=== PATIENT | female | born 1960 | race Caucasian/White ===

== ENCOUNTER 2019-05-04 21:23 | Emergency (ER) | payer MEDICARE ==
[~2019-05-04] VITALS: Ht 167.6 cm; Wt 56.7 kg
[2019-05-04] MEDS ORDERED: LEVO50TA PO (21:30)
--- NOTE | 2019-05-04 21:33 | NUR ---
pt ambulating with steady gait. A&O x4. c/o bilateral knee and BUE pain s/p fall today approx 1500. pt able to move extremities freely. no visible injuries noted. denies hitting head or LOC. speech is clear and able to make needs known. Breathing even and unlabored. pt also c/o nausea. denies dizziness or diarrhea. denies any distress.
--- NOTE | 2019-05-04 21:35 | NUR ---
Dr. Heart at bedside for MSE
[2019-05-04] MEDS ORDERED: ONDANSETRON ODT 4 MG TAB.RAPDIS ONE (21:41)
[2019-05-04] MEDS ORDERED: ONDANSETRON ODT 4 MG TAB.RAPDIS SL ONE (21:45)
[2019-05-04] MEDS ORDERED: HYDROMORPHONE 1 MG/1 ML DISP.SYRIN IM ONE (22:15)
[2019-05-04] MEDS ORDERED: ONDANSETRON 4 MG/2 ML VIAL IM ONE (22:15)
--- NOTE | 2019-05-04 22:20 | NUR ---
Patient discharged to home in stable conditon. Written and verbal after care instructions given. Patient verbalizes understanding of instructions. Patient ambulating with steady gait. Results / Sling provided to patient.
[2019-05-04 22:24] VITALS: BP 116/63
== END 2019-05-04 22:20 | disposition home or self-care (01) ==
LOC: ER 21:23
DX: S52.122A Displaced fracture of head of left radius, initial encounter for closed fracture (principal); M25.561 Pain in right knee; M25.562 Pain in left knee; E03.9 Hypothyroidism, unspecified; Z79.899 Other long term (current) drug therapy; W19.XXXA Unspecified fall, initial encounter; Y93.89 Activity, other specified; Y92.89 Other specified places as the place of occurrence of the external cause; Y99.8 Other external cause status
CPT/HCPCS: 73080; A4663; Q0162

== ENCOUNTER 2019-06-07 07:30 | Emergency (ER) | payer MEDICARE ==
[~2019-06-07] VITALS: Ht 167.6 cm; Wt 54.4 kg
[~2019-06-07 07:30] MED LIST: LEVO50TA PO
--- NOTE | 2019-06-07 07:44 | NUR ---
Patient ambulated with stable gait. Speech is clear, speaks in complete sentences. A/Ox4. No acute neuro deficits. Patient came for c/o worsening cough that initially started about 10 days ago. Respiratory even and unlabored, clear lung sounds noted throughout, evidence of non-productive cough noted. No acute cardiovascular distress noted, all pulses palpable, denies any cp. No GI/ distress. Patient in bed at lowest position, sr upx2, call light within reach. Fall precautions implemented per protocol.
--- NOTE | 2019-06-07 07:48 | NUR ---
Jovna Joe at bedside for images
--- NOTE | 2019-06-07 07:57 | NUR ---
ERMD at bedside for MSE
[2019-06-07] MEDS ORDERED: IPRATROPIUM BROMIDE 0.5 MG/2.5 ML NEBU NEB ONE (08:15)
[2019-06-07] MEDS ORDERED: ACETAMINOPHEN ES 500 MG TABLET ONE (08:15)
[2019-06-07] MEDS ORDERED: IBUPROFEN 400 MG TABLET PO ONE (08:15)
[2019-06-07] MEDS ORDERED: ACETAMINOPHEN ES 500 MG TABLET PO ONE (08:15)
[2019-06-07] MEDS ORDERED: ALBUTEROL SULFATE 2.5 MG/3 ML NEBU NEB ONE (08:15)
[2019-06-07] MEDS ORDERED: predniSONE 10 MG TABLET PO ONE (08:15)
[2019-06-07] MEDS ORDERED: IBUPROFEN 400 MG TABLET ONE (08:15)
[2019-06-07] MEDS ORDERED: predniSONE 20 MG TABLET ONE (08:16)
[2019-06-07] MEDS ORDERED: IPRATROPIUM BROMIDE 0.5 MG/2.5 ML NEBU ONE (08:43)
[2019-06-07] MEDS ORDERED: ALBUTEROL SULFATE 2.5 MG/3 ML NEBU ONE ×2 (08:43)
[2019-06-07] MEDS ORDERED: LEVOFLOXACIN 750 MG TABLET PO ONE (09:00)
[2019-06-07] MEDS ORDERED: LEVOFLOXACIN 750 MG TABLET ONE (09:08)
--- NOTE | 2019-06-07 09:23 | NUR ---
Patient discharged to home in stable conditon. Written and verbal after care instructions given. Patient verbalizes understanding of instructions. Patient ambulated with stable gait.
[2019-06-07 09:24] VITALS: BP 123/82
== END 2019-06-07 09:25 | disposition home or self-care (01) ==
LOC: ER 07:30
DX: J20.9 Acute bronchitis, unspecified (principal); J01.90 Acute sinusitis, unspecified; E03.9 Hypothyroidism, unspecified; Z79.899 Other long term (current) drug therapy
CPT/HCPCS: 71045; 94664; 99284; J7512; A4663; A9150; J3590

== ENCOUNTER 2019-07-08 06:36 | Emergency (ER) | payer MEDICAID, MEDICARE ==
[~2019-07-08] VITALS: Ht 167.6 cm; Wt 55.8 kg
--- NOTE | 2019-07-08 06:45 | NUR ---
Dr. Lala at bedside for MSE
--- NOTE | 2019-07-08 06:56 | NUR ---
Patient discharged to home in stable conditon. Written and verbal after care instructions given. Patient verbalizes understanding of instructions. Patient ambulating with steady gait.
[2019-07-08 06:57] VITALS: BP 132/75
== END 2019-07-08 06:56 | disposition home or self-care (01) ==
LOC: ER 06:40
DX: J01.90 Acute sinusitis, unspecified (principal); E03.9 Hypothyroidism, unspecified
CPT/HCPCS: A4663

== ENCOUNTER 2019-08-30 07:32 | Emergency (ER) | payer MEDICARE ==
[~2019-08-30] VITALS: Ht 167.6 cm; Wt 55.8 kg
--- NOTE | 2019-08-30 08:10 | NUR ---
Patient ambulated with stable gait. Speech is clear, speaks in complete sentences no acute neuro deficits. A/Ox4. Patient came for c/o RUQ abd wound and is experiencing localized pain in the general area since last week. Abd wound is erythamatous in the RUQ no prurulent drainage/discharge, and is warm to the touch. Respiratory even and unlabored, no cough no sob at this time. No cardiovascular distress noted, denies any cp or palpitations, cap refill <3 secs, all pulses palpable. Denies any vomiting/diarrhea but reports having intermittent nausea. Patient in bed at lowest position, sr upx2, call light within reach. Fall precautions implemented per protocol.
--- NOTE | 2019-08-30 08:18 | NUR ---
Patient discharged to home in stable conditon. Written and verbal after care instructions given. Patient verbalizes understanding of instructions. Patient ambulated with stable gait.
[2019-08-30 08:25] VITALS: BP 130/85
== END 2019-08-30 08:32 | disposition home or self-care (01) ==
LOC: ER 07:32
DX: S31.609A Unspecified open wound of abdominal wall, unspecified quadrant with penetration into peritoneal cavity, initial encounter (principal); E03.9 Hypothyroidism, unspecified; X58.XXXA Exposure to other specified factors, initial encounter; Y93.89 Activity, other specified; Y92.89 Other specified places as the place of occurrence of the external cause; Y99.8 Other external cause status
CPT/HCPCS: A4663

== ENCOUNTER 2023-12-03 05:35 | Emergency (ER) | payer MEDICARE, OTHER ==
[~2023-12-03] VITALS: Ht 167.6 cm; Wt 61.2 kg
[2023-12-03 05:40] VITALS: O2SAT 97
[2023-12-03 06:01] LABS: *BILIRUBIN,URIN NEGATIVE (NEGATIVE); *BLOOD, URINE NEGATIVE (NEGATIVE); *CLARITY,URINE CLEAR (CLEAR); *COLOR,URINE YELLOW (YELLOW); *KETONES,URINE NEGATIVE (NEGATIVE); *PROTEIN,URINE NEGATIVE (NEGATIVE); *UROBILINOGEN,URINE 0.2 E.U./dl (NORMAL); LEUKOCYTE ESTERASE ,URINE TRACE (NEGATIVE); NITRITE, URINE NEGATIVE (NEGATIVE); PH,URINE 5.5 (5.0-8.0); UGLUCOSE NEGATIVE (NEGATIVE)
[2023-12-03 06:10] LABS: BACTERIA,URINE NONE SEEN /HPF (NONE SEEN); RBC,URINE NONE SEEN /HPF (0-3); SQUAMOUS EPITHELIAL CELL,UR FEW /HPF (NONE SEEN); WBC,URINE 0-3 /HPF (0-3)
== END 2023-12-03 06:05 | disposition left against medical advice (07) ==
LOC: ER 05:50
DX: R35.0 Frequency of micturition (principal); M79.601 Pain in right arm; M25.551 Pain in right hip; Z53.21 Procedure and treatment not carried out due to patient leaving prior to being seen by health care provider; W01.0XXA Fall on same level from slipping, tripping and stumbling without subsequent striking against object, initial encounter; Y93.89 Activity, other specified; Y92.89 Other specified places as the place of occurrence of the external cause; Y99.8 Other external cause status

== ENCOUNTER 2023-12-14 20:54 | Inpatient (IN) | payer MEDICARE, OTHER ==
[~2023-12-14] VITALS: Ht 167.6 cm; Wt 72.6 kg
[2023-12-14] MEDS ORDERED: REMEDY ESSENTIAL ZINC PASTE 113 GM TOP PRN (21:00)
[2023-12-14 21:30] VITALS: BP 106/59; TEMP 98.7; O2SAT 95
[2023-12-14] MEDS ORDERED: PREGABALIN 50 MG CAPSULE PO SCH (21:30)
[2023-12-14] MEDS: BUPRENORPHINE HCL 2 MG TAB.SUBL SL ONE (21:30)
[2023-12-14] MEDS ORDERED: ALBUTEROL SULFATE 8 GM HFA.AER.AD INH PRN (21:30)
[2023-12-14] MEDS ORDERED: ALBUTEROL SULFATE 2.5 MG/3 ML NEBU NEB PRN (22:15)
[2023-12-14] MEDS: OXYCODONE HCL 5 MG TABLET PO PRN (22:52)
[2023-12-15 06:00] VITALS: BP 122/66; TEMP 97.9; O2SAT 95
[2023-12-15] MEDS: LEVOTHYROXINE SODIUM 50 MCG TABLET PO SCH ×2 (06:09→15:15)
[2023-12-15] MEDS: PANTOPRAZOLE SODIUM 40 MG TABLET.DR PO SCH ×2 (06:09→15:15)
[2023-12-15] MEDS ORDERED: BUPRENORPHINE HCL 2 MG TAB.SUBL SL PRN (06:30)
[2023-12-15 08:00] VITALS: BP 135/58; TEMP 98.3; O2SAT 98
[2023-12-15] MEDS: ESCITALOPRAM OXALATE 10 MG TABLET PO SCH ×2 (08:47→15:15)
[2023-12-15] MEDS ORDERED: PREG75CA PO (11:56)
[2023-12-15] MEDS ORDERED: BUPR2TAB3 PO (11:57)
[2023-12-15] MEDS ORDERED: PANT40TA49 PO (11:57)
[2023-12-15] MEDS ORDERED: ESCI10TA PO (11:59)
[2023-12-15] MEDS: BUPRENORPHINE HCL 2 MG TAB.SUBL SL ONE (12:00)
[2023-12-15] MEDS: PREGABALIN 25 MG CAPSULE PO ONE (12:00)
[2023-12-15] MEDS ORDERED: Medication Not On Formulary EA (Pregabalin (Lyrica) 75 MG) PO SCH (13:00)
[2023-12-15] MEDS: CIPROFLOXACIN HCL 250 MG TABLET PO SCH (13:07)
[2023-12-15 16:30] VITALS: BP 133/69; TEMP 97.6; O2SAT 97
[2023-12-15] MEDS: PREGABALIN 25 MG CAPSULE PO SCH (17:04)
[2023-12-15] MEDS: BUPRENORPHINE HCL 2 MG TAB.SUBL SL SCH (17:09)
[2023-12-15 20:00] VITALS: BP 101/59; TEMP 98.9; O2SAT 94
[2023-12-16 06:42] VITALS: BP 116/69; TEMP 98.8; O2SAT 97
[2023-12-16 12:00] VITALS: BP 115/52; TEMP 98.4; O2SAT 96
[2023-12-16 16:02] VITALS: BP 122/56; TEMP 99.8; O2SAT 95
[2023-12-16 20:00] VITALS: TEMP 98.7
[2023-12-17 16:03] VITALS: TEMP 98.5
[2023-12-17 19:45] VITALS: BP 125/68; TEMP 98.2; O2SAT 96
[2023-12-18 06:12] VITALS: BP 113/47; TEMP 97.8; O2SAT 96
[2023-12-18 08:30] VITALS: BP 109/61; TEMP 98; O2SAT 97
[2023-12-18 08:59] VITALS: TEMP 98
[2023-12-18 16:08] VITALS: BP 107/57; TEMP 98.4; O2SAT 95
[2023-12-18 19:40] VITALS: BP 124/60; TEMP 98; O2SAT 97
[2023-12-19] MEDS: ZOLPIDEM 5 MG TABLET PO PRN (01:02)
[2023-12-19 12:00] VITALS: BP 126/56; TEMP 98; O2SAT 100
[2023-12-19 16:00] VITALS: BP 115/56; TEMP 98.1; O2SAT 97
[2023-12-19 19:58] VITALS: BP 119/68; TEMP 98; O2SAT 95
[2023-12-20 05:45] VITALS: BP 125/68; TEMP 97.9; O2SAT 97
[2023-12-20 15:05] VITALS: BP 102/60; TEMP 97.6; O2SAT 95
[2023-12-20] MEDS: diphenhydrAMINE 50 MG CAPSULE PO PRN (21:55)
[2023-12-21 03:22] VITALS: BP 102/62; TEMP 98; O2SAT 92
[2023-12-21 07:02] VITALS: BP 95/49; TEMP 97.9; O2SAT 98
[2023-12-21] MEDS: CLOTRIMAZOLE 1% VAG CREAM 45 GM TUBE VG SCH (20:04)
[2023-12-21 21:23] VITALS: BP 122/63; TEMP 98.3; O2SAT 90
[2023-12-22 07:17] VITALS: BP 108/50; TEMP 97.5; O2SAT 93
[2023-12-22 16:00] VITALS: BP 123/58; TEMP 98.5; O2SAT 95
[2023-12-22 21:53] VITALS: BP 120/60; TEMP 98.3; O2SAT 95
[2023-12-23 07:04] VITALS: BP 122/60; TEMP 98; O2SAT 95
[2023-12-23 15:55] VITALS: BP 114/62; TEMP 97.6; O2SAT 97
[2023-12-23 20:29] VITALS: BP 94/52; TEMP 98.3; O2SAT 97
[2023-12-24 06:27] VITALS: BP 114/76; TEMP 98.2; O2SAT 99
[2023-12-24 15:52] VITALS: BP 121/55; TEMP 98; O2SAT 99
[2023-12-24 20:28] VITALS: BP 90/52; TEMP 98.8; O2SAT 97
[2023-12-25 05:50] VITALS: BP 110/47; TEMP 98.4; O2SAT 99
[2023-12-25 16:07] VITALS: BP 107/55; TEMP 98.5; O2SAT 96
[2023-12-25 21:30] VITALS: BP 107/52; TEMP 98.2; O2SAT 94
[2023-12-26 04:18] VITALS: BP 110/57; TEMP 99.2; O2SAT 92
[2023-12-26 15:45] VITALS: BP 110/59; TEMP 99.6; O2SAT 92
[2023-12-27 06:49] VITALS: BP 108/56; TEMP 98.5; O2SAT 93
[2023-12-27 16:26] VITALS: BP 109/55; TEMP 98; O2SAT 94
[2023-12-27 20:00] VITALS: BP 97/51; TEMP 98.8; O2SAT 94
[2023-12-28 06:00] VITALS: BP 108/54; TEMP 98.4; O2SAT 96
== END 2023-12-28 10:45 | disposition home health service (06) | DRG 560 ==
PROVIDERS: ADMIT Physical Medicine & Rehabilitation Pain Medicine; ATTEND Physical Medicine & Rehabilitation Pain Medicine
DX: S72.21XD Displaced subtrochanteric fracture of right femur, subsequent encounter for closed fracture with routine healing (principal); B37.89 Other sites of candidiasis; E03.9 Hypothyroidism, unspecified; G89.29 Other chronic pain; K21.9 Gastro-esophageal reflux disease without esophagitis; F41.9 Anxiety disorder, unspecified; G47.00 Insomnia, unspecified; F39 Unspecified mood [affective] disorder; W19.XXXD Unspecified fall, subsequent encounter; Z85.858 Personal history of malignant neoplasm of other endocrine glands
CPT/HCPCS: 73551; 97535-GO-CO; A4663; A6209; J3535; Q0163